=== PATIENT | male | born 1975 | race Caucasian/White ===

== ENCOUNTER 2017-06-06 09:52 | Day surgery (SDC) | payer BC ==
[~2017-06-06 09:52] MED LIST: Lactated Ringers 1,000 ML IV SCH
--- NOTE | 2017-06-06 10:12 | PCM.PREANE ---
Preanesthetic Assessment - Anesthesia/Transfusion/Family Hx Anesthesia History: Prior Anesthesia Without Reaction Family History of Anesthesia Reaction: No Transfusion History: No Prior Transfusion(s) - Review of Systems General: No Symptoms Pulmonary: No Symptoms Cardiovascular: No Symptoms Neurological: No Symptoms Other: Reports: None - Physical Assessment NPO Status Date: 06/05/17 Height: 1.8 m Weight: 131.995 kg Mental Status: Alert & Oriented x3 Airway Class: Mallampati = 1 Dentition: Reports: Normal Dentition ROM/Head Extension: Full Lungs: Clear to Auscultation, Normal Respiratory Effort Cardiovascular: Regular Rate, Regular Rhythm - Allergies Allergies/Adverse Reactions: Allergies Allergy/AdvReac Type Severity Reaction Status Date / Time No Known Allergies Allergy Verified 06/03/17 12:03 - Anesthesia Plan Pre-Op Medication Ordered: None - Acknowledgements Anesthesia Type Planned: MAC Pt an Appropriate Candidate for the Planned Anesthesia: Yes Alternatives and Risks of Anesthesia Discussed w Pt/Guardian: Yes Pt/Guardian Understands and Agrees with Anesthesia Plan: Yes Additional Comments: PMH: type 1 DM, htn, hld, PreAnesthesia Questionnaire Cardiovascular History: Reports: High Cholesterol, Hypertension Gastrointestinal History: Reports: GERD Endocrine/Metabolic History: Reports: Diabetes, Type II, Obesity/BMI 30+ - Past Surgical History Head Surgeries/Procedures: Reports: None GI Surgical History: Reports: Bariatric Procedure Other GI Surgeries/Procedures: hx of gastric banding and removal of banding - SUBSTANCE USE Smoking Status *Q: Never Smoker Recreational Drug Use History: No - HOME MEDS Home Medications: Home Meds Doxazosin Mesylate [Cardura] 4 mg PO BEDTIME 06/03/17 [History] Insulin Aspart [Novolog Flexpen] 25 units SUBCUT TID 06/03/17 [History] Insulin Glarg,Human.Rec.Analog [Lantus Solostar] 45 units SUBCUT BEDTIME [History] Losartan Potassium 100 mg PO BEDTIME 06/03/17 [History] Omeprazole 40 mg PO BEDTIME 06/03/17 [History] amLODIPine Besylate [Amlodipine Besylate] 10 mg PO BEDTIME 06/03/17 [History] atorvaSTATin Calcium [Atorvastatin Calcium] 10 mg PO BEDTIME 06/03/17 [History] diphenhydrAMINE HCl [Sleep Aid] 2 tab PO BEDTIME PRN 06/03/17 [History] - CURRENT (IN HOUSE) MEDS Current Meds: Current Medications Lactated Ringer's (Ringers, Lactated) 1,000 mls @ 125 mls/hr IV ASDIRECTED STEVENSON
[2017-06-06] MEDS ORDERED: Midazolam 1 MG/ML 2 ML SDV ONE (10:55)
[2017-06-06] MEDS ORDERED: Propofol 200 MG/20 ML SDV ONE (10:55)
[2017-06-06] MEDS ORDERED: Lidocaine 2% 5 ML SDV ONE (10:55)
[2017-06-06] MEDS ORDERED: fentaNYL 100 MCG/2 ML SDV ONE (10:55)
[2017-06-06] MEDS ORDERED: Ondansetron 4 MG Tab.DIS PO PRN (11:39)
--- NOTE | 2017-06-06 11:44 | PCM.OPNOTE ---
- General Post-Op/Procedure Note Date of Surgery/Procedure: 06/06/17 Operative Procedure(s): Esophagogastroduodenoscopy with biopsy Pre Op Diagnosis: Chronic epigastric and left upper quadrant pain. History of lap band. Post-Op Diagnosis: Mild chronic gastritis. No acute ulcerations. Anesthesia Technique: MAC (ASA III) Primary Surgeon: Kannan Wolf Files Supervisor: Hugh Salas Condition: Good Free Text/Narrative:: DICTATION [id number] CPT CODE 18431
[2017-06-06] MEDS ORDERED: Lactated Ringers 1,000 ML IV SCH (11:45)
--- NOTE | 2017-06-06 12:16 | PCM48HPAN ---
Post Anesthesia Note - EVALUATION WITHIN 48HRS OF ANESTHETIC Vital Signs in Normal Range: Yes Patient Participated in Evaluation: Yes Respiratory Function Stable: Yes Airway Patent: Yes Cardiovascular Function Stable: Yes Hydration Status Stable: Yes Pain Control Satisfactory: Yes Nausea and Vomiting Control Satisfactory: Yes Mental Status Recovered: Yes Resp Rate: 15
--- NOTE | 2017-06-06 12:16 | PCM.POSTAN ---
POST ANESTHESIA ASSESSMENT - MENTAL STATUS Mental Status: Alert, Oriented - RESPIRATORY Respiratory Status: Respiratory Rate WNL, Airway Patent, O2 Saturation Stable - CARDIOVASCULAR CV Status: Pulse Rate WNL, Blood Pressure Stable - POST OP HYDRATION Hydration Status: Adequate & Stable
--- NOTE | 2017-06-06 13:54 | OR ---
SURGEON: Kannan Wolf M.D. DATE OF PROCEDURE: 06/06/2017 OPERATION PERFORMED: Esophagogastroduodenoscopy with biopsy. ANESTHESIA: MAC. ASSISTANT MANAGER: Dr. Salas, PGY3 ASA CLASSIFICATION: III. PREOPERATIVE DIAGNOSIS: Persistent epigastric and left upper quadrant abdominal pain. POSTOPERATIVE DIAGNOSIS: Mild gastritis. DESCRIPTION OF PROCEDURE: The patient was taken to the endoscopy room and positioned on the endoscopy table in the left lateral decubitus position. Time-out was called for appropriate identification of patient and procedure. Monitored anesthesia care was provided. A bite block was placed between the patient's teeth. The gastroscope was inserted through the bite block into the oropharynx and advanced without difficulty through the esophagus and stomach into the duodenum where examination was now carried out in a retrograde fashion. The duodenum shows no acute inflammatory changes or ulcerations. The stomach does show mild gastritis. No acute ulcerations were noted. Antral biopsies were obtained to look for the presence of Helicobacter pylori. The gastroscope was then retroflexed to visualize the proximal stomach. No ulcerations were noted. The scope was then straightened and slowly withdrawn. The GE junction was well defined and shows no acute inflammatory changes. The esophagus demonstrated good contractility. No mid or proximal lesions were identified. The vocal cords were visualized as the scope was withdrawn and noted to move symmetrically. The gastroscope was then removed with the patient having tolerated the procedure well. He was taken to recovery room in stable condition. BÁRBARA HOFFMAN /[id number]
== END 2017-06-06 12:10 | disposition home or self-care (01) ==
LOC: MW.SDS 09:52
PROVIDERS: ATTEND Surgery
DX: K29.50 Unspecified chronic gastritis without bleeding (principal); I10 Essential (primary) hypertension; E78.00 Pure hypercholesterolemia, unspecified; E11.9 Type 2 diabetes mellitus without complications; Z79.899 Other long term (current) drug therapy; Z87.891 Personal history of nicotine dependence
CPT/HCPCS: 43239; J2250; J3010; J7120; 00731; 88305; 88312; J2704

== ENCOUNTER 2020-10-16 17:30 | Emergency (ER) | payer OTHER, BC ==
[2020-10-16] MEDS ORDERED: Diazepam 2 MG Tab PO ONE (19:42)
[2020-10-16] MEDS ORDERED: Dexamethasone 10 MG/ML SDV IM STA (19:42)
[2020-10-16] MEDS ORDERED: Ketorolac 30 MG/ML SDV IM ONE (19:42)
[2020-10-16] MEDS ORDERED: Acetaminophen 500 MG Tab PO ONE (19:42)
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
== END 2020-10-16 20:31 | disposition home or self-care (01) ==
LOC: MW.ED 17:30
DX: M54.5 Low back pain (principal); E78.00 Pure hypercholesterolemia, unspecified; I10 Essential (primary) hypertension; E11.9 Type 2 diabetes mellitus without complications; E66.9 Obesity, unspecified; Z68.39 Body mass index [BMI] 39.0-39.9, adult; Z79.4 Long term (current) use of insulin; Z79.899 Other long term (current) drug therapy
CPT/HCPCS: 96372; 99283; A9270; J1100; J1885